=== PATIENT | female | born 1950 | race Caucasian/White ===

== ENCOUNTER 2020-12-25 10:53 | Inpatient (IN) | payer MEDICARE, OTHER ==
[~2020-12-25] VITALS: Ht 157.5 cm; Wt 50.0 kg
--- NOTE | 2020-12-25 11:47 | NUR ---
FAMILY SUPPORT COORDINATOR AT BEDSIDE.
[2020-12-25] MEDS ORDERED: LIDOcaine 2% 10ml TOPICAL JELLY (Urojet) TP ONE (11:50)
--- NOTE | 2020-12-25 12:30 | NUR ---
NOTIFIED DR PEREZ THAT PT SEEMS LITTLE CONFUSED ,PT HAS DRIED STOOL AND DOESN'T REMEMBER WHEN SHE HAD BM,PT STATED THAT SHE DOES FEEL LITTLE ODD ABOUT HER BEHAVIOUR ,HAS NOT SEEN DR IN YEARS .ASKED IF SHE HAS DEMENTIA ,PT STATED THAT SHE DOESN'T KNOW.
[2020-12-25 12:33] LABS: BASOPHILS % (AUTO) 0.1 % (0-1); EOSINOPHILS % (AUTO) 0 % (0-6); HEMATOCRIT 38.4 % (35.0-45.0); LYMPHOCYTES # (AUTO) 0.7 X10'3 (1.1-4.8); LYMPHOCYTES % (AUTO) 6.2 % (21-51); MEAN CORPUSCULAR HEMOGLOBIN 32.5 PG (27.0-31.0); MEAN CORPUSCULAR HGB CONC 33.9 g/dL (33.0-36.5); MEAN CORPUSCULAR VOLUME 95.9 FL (78-98); MEAN PLATELET VOLUME 8.1 FL (7.4-10.4); MONOCYTES # (AUTO) 0.6 X10'3 (0-0.9); MONOCYTES % (AUTO) 5.1 % (2-12); NEUTROPHILS # (AUTO) 10.1 X10'3 (1.8-7.7); NEUTROPHILS % (AUTO) 88.6 % (42-75); PLATELET COUNT 206 X10'3 (140-440); RED CELL DISTRIBUTION WIDTH 13.1 % (11.5-14.5); WHITE BLOOD COUNT 11.4 X10'3 (4.5-11.0)
[2020-12-25 12:41] LABS: PARTIAL THROMBOPLASTIN TIME 26 SECONDS (22-32)
[2020-12-25 12:43] LABS: ALANINE AMINOTRANSFERASE 63 U/L (12-78); ALBUMIN 4.1 G/DL (3.4-5.0); ALBUMIN/GLOBULIN RATIO 1.1 (1.1-1.5); ALKALINE PHOSPHATASE 52 IU/L (46-116); ANION GAP 14 (8-16); ASPARTATE AMINO TRANSFERASE 123 U/L (10-37); BILIRUBIN,TOTAL 0.8 MG/DL (0.1-1.0); BLOOD UREA NITROGEN 46 MG/DL (7-18); CALCIUM 9.3 MG/DL (8.5-10.1); CHLORIDE 99 MMOL/L (99-107); CREATININE 1.15 MG/DL (0.40-0.90); GLUCOSE 94 MG/DL (70-104); POTASSIUM 3.3 MMOL/L (3.5-5.1); SODIUM 139 MMOL/L (135-145); TOTAL CARBON DIOXIDE 26.2 MMOL/L (24-32); eGFR 47 ML/MIN
[2020-12-25] MEDS ORDERED: bisacodyl 10mg suppository rectal RC PRN (13:05)
[2020-12-25] MEDS ORDERED: acetaminophen 325mg tablet PO PRN ×2 (13:05)
[2020-12-25] MEDS ORDERED: mag hydrox/Alum hydrox/simeth 30ml oral suspension PO PRN (13:05)
[2020-12-25] MEDS ORDERED: morphine 2 MG/ML inj. syringe IV PRN ×2 (13:05)
[2020-12-25] MEDS ORDERED: ondansetron/PF 4mg/2ml inj IV PRN (13:05)
[2020-12-25] MEDS ORDERED: magnesium hydroxide 30ml (MOM) UD suspension PO PRN (13:05)
[2020-12-25] MEDS ORDERED: HYDROcodone/acetaminophen 10/325mg tab PO PRN (13:05)
[2020-12-25] MEDS ORDERED: NO HOME MEDS PO (13:11)
--- NOTE | 2020-12-25 13:57 | NUR ---
TO CT SCAN.
[2020-12-25] MEDS: dextrose 5%-1/2 normal saline 1,000 ML IV SCH ×2 (14:17→22:56)
[2020-12-25 19:31] LABS: UA COLLECTION TYPE NON-SPECIFIED
[2020-12-25 19:32] LABS: CLARITY,URINE SLIGHTLY CLOUDY (Clear); COLOR,URINE STRAW (Yellow); GLUCOSE, URINE NEGATIVE (Neg); KETONES,URINE 15 mg/dl (Neg); LEUKOCYTE ESTERASE ,URINE NEGATIVE (Neg); NITRITES, URINE NEGATIVE (Neg); OCCULT BLOOD,URINE LARGE (Neg); PROTEIN,URINE 100 mg/dl (Neg); UROBILINOGEN,URINE 0.2 E.U/dL (0.2-1.0)
[2020-12-25 19:58] LABS: HYALINE CASTS >30 /LPF (NEGATIVE)
[2020-12-25 19:59] LABS: CELLULAR CAST 0-4 /LPF (NEGATIVE)
[2020-12-25 20:00] LABS: MUCUS STRANDS MODERATE /LPF (Neg); SQUAMOUS EPITHELIAL CELL,UR FEW /LPF (FEW)
[2020-12-25 20:01] LABS: BACTERIA,URINE NONE SEEN /HPF (Neg); FINE GRANULAR CAST 0-3 /LPF (NEGATIVE); WBC,URINE 0-4 /HPF (0-4)
[2020-12-25 20:02] LABS: RBC,URINE 0-2 /HPF (0-2)
[2020-12-25] MEDS: docusate sod 100mg capsule PO SCH (20:22)
--- NOTE | 2020-12-25 22:20 | NUR ---
Received report from GRAPHIC DESIGN MANAGERVANE Muhammad. Patient to follow shortly.
--- NOTE | 2020-12-25 22:30 | NUR ---
Patient arrived to floor from ER on a gurney and slide board used to transfer patient over to bed. Pt. A&O, and some grimacing noted whilst being transferred and rolled to pull out extra bedding from underneath. Will offer pain medication.
[2020-12-25] MEDS: HYDROcodone/acetaminophen 5mg/325mg tablet PO PRN (22:56)
[2020-12-25 23:00] VITALS: BP 139/58
[2020-12-26] VITALS (19 sets, daily range): BP systolic 108–192; BP diastolic 49–112
[2020-12-26] MEDS: HYDROcodone/acetaminophen 5mg/325mg tablet PO PRN (05:28)
[2020-12-26] MEDS: dextrose 5%-1/2 normal saline 1,000 ML IV SCH ×2 (05:29→19:13)
[2020-12-26 06:21] LABS: PRE OP PROTIME 10.7 SECONDS (9.0-12.0)
[2020-12-26 06:27] LABS: BASOPHILS % (AUTO) 0.2 % (0-1); EOSINOPHILS # (AUTO) 0.1 X10'3 (0-0.9); HEMATOCRIT 33.7 % (35.0-45.0); HEMOGLOBIN 11.7 g/dl (12.0-16.0); LYMPHOCYTES # (AUTO) 0.9 X10'3 (1.1-4.8); LYMPHOCYTES % (AUTO) 12.4 % (21-51); MEAN CORPUSCULAR HEMOGLOBIN 33.4 PG (27.0-31.0); MEAN CORPUSCULAR HGB CONC 34.7 g/dL (33.0-36.5); MEAN CORPUSCULAR VOLUME 96.4 FL (78-98); MEAN PLATELET VOLUME 8.3 FL (7.4-10.4); MONOCYTES # (AUTO) 0.6 X10'3 (0-0.9); MONOCYTES % (AUTO) 7.4 % (2-12); PLATELET COUNT 188 X10'3 (140-440); RED BLOOD COUNT 3.49 X10'6 (4.20-5.60); WHITE BLOOD COUNT 7.6 X10'3 (4.5-11.0)
[2020-12-26 06:33] LABS: ALBUMIN 3.5 G/DL (3.4-5.0); ANION GAP 7 (8-16); BLOOD UREA NITROGEN 34 MG/DL (7-18); BUN/CREATININE RATIO 36.2 (6.6-38.0); CALCIUM 8.9 MG/DL (8.5-10.1); CHLORIDE 102 MMOL/L (99-107); CREATININE 0.94 MG/DL (0.40-0.90); GLUCOSE 114 MG/DL (70-104); SODIUM 136 MMOL/L (135-145); TOTAL CARBON DIOXIDE 26.6 MMOL/L (24-32); eGFR 59 ML/MIN
--- NOTE | 2020-12-26 06:57 | NUR ---
Problems reprioritized. Patient report given, questions answered & plan of care reviewed with Diane CIFUENTES.
--- NOTE | 2020-12-26 07:31 | NUR ---
Page Sent PAGER ID: [phone] MESSAGE: [id number] Shakeel, can I order K protocol on pt stat. pt is going to ER at 11:30 has a K of 3.0. patrice [id number]
--- NOTE | 2020-12-26 07:33 | NUR ---
Patient in room [facility]. I have received report from Nicol soliz and had the opportunity to ask questions and assume patient care.
[2020-12-26] MEDS ORDERED: ringers solution, lacted 1,000 ML IV SCH ×2 (07:35→11:30)
[2020-12-26] MEDS ORDERED: morphine 2 MG/ML inj. syringe IV PRN ×2 (07:35→11:30)
[2020-12-26] MEDS ORDERED: proCHLORperazine 10 MG/2 ml inj IV PRN ×2 (07:35→11:30)
[2020-12-26] MEDS ORDERED: morphine 4 MG/ML inj SYRINge IV PRN ×2 (07:35→11:30)
[2020-12-26] MEDS ORDERED: meperidine/PF 25mg/ml syringe IV PRN ×5 (07:35→11:30)
[2020-12-26] MEDS ORDERED: ondansetron/PF 4mg/2ml inj IV PRN ×2 (07:35→11:30)
[2020-12-26] MEDS: docusate sod 100mg capsule PO SCH ×2 (08:00→21:28)
[2020-12-26] MEDS ORDERED: potassium Cl 20 mEq SR tablet PO PRN ×2 (08:10)
[2020-12-26] MEDS ORDERED: magnesium Cl slow-release 64mg tablet PO PRN (08:10)
[2020-12-26] MEDS ORDERED: magnesium 4gm in 100ml NS 100 ML IV PRN (08:10)
--- NOTE | 2020-12-26 09:09 | NUR ---
per pharmacist potassium is compatible IVPB with D% 1/2 NS
[2020-12-26] MEDS: potassium Cl 40MEQ/1/2NS 520ml 520 ML IV PRN ×2 (09:12→15:07)
--- NOTE | 2020-12-26 10:30 | NUR ---
Problems reprioritized. Patient report given, questions answered & plan of care reviewed with Lu lacy rn.
--- NOTE | 2020-12-26 11:00 | NUR ---
no vitals to be taken, pt is at surgery.
[2020-12-26] MEDS ORDERED: rocuronium 10mg/ml inj IV ONE ×2 (11:26→11:40)
[2020-12-26] MEDS ORDERED: [UNRECOGNIZED DRUG - OTHER] IV ONE (11:26)
[2020-12-26] MEDS ORDERED: POTASSIUM CL IV ONE (11:26)
[2020-12-26] MEDS ORDERED: sevoflurane 250ml liquid IH ONE (11:26)
[2020-12-26] MEDS ORDERED: ketorolac trometh. 30mg/ml inj. IV ONE (11:30)
[2020-12-26] MEDS ORDERED: labetalol 20mg/4ml (5mg/ml) syringe IV PRN (11:30)
[2020-12-26] MEDS ORDERED: hydrALAZINE 20mg/ml inj. IV PRN (11:30)
[2020-12-26] MEDS ORDERED: acetaminophen 1,000mg/100ml IV 100 ML IV PRN (11:30)
[2020-12-26] MEDS ORDERED: midazolam 1 mg/ML 2ml injection ONE (11:32)
[2020-12-26] MEDS ORDERED: fentaNYL /PF 50mcg/ml 5ml ampule ONE (11:33)
[2020-12-26] MEDS ORDERED: LIDOcaine 2% (20mg/ml) 5ml vial ONE ×2 (11:40→11:51)
[2020-12-26] MEDS ORDERED: propofol inj 20 ML IV ONE ×2 (11:40→11:51)
[2020-12-26] MEDS ORDERED: famotidine/PF 10 mg/ml inj IV ONE (11:49)
[2020-12-26] MEDS ORDERED: 0.9 % SODIUM CHLORIDE 10 ML VIAL ONE ×2 (11:51)
[2020-12-26] MEDS ORDERED: ceFAZolin 1000mg inj ONE ×2 (12:04)
[2020-12-26] MEDS ORDERED: ondansetron/PF 4mg/2ml inj ONE (12:04)
[2020-12-26] MEDS ORDERED: dexamethasone sod phosphate 4mg/ml inj. ONE (12:04)
[2020-12-26] MEDS ORDERED: glycopyrrolate 0.2mg/ml inj ONE (12:53)
[2020-12-26] MEDS ORDERED: morphine 10mg/ml inj. ONE (12:53)
[2020-12-26] MEDS ORDERED: neostigmine methylsulfate 1 MG/ML 10ml vial ONE (12:53)
--- NOTE | 2020-12-26 13:18 | NUR ---
Received from OR via BED , accompanied by Anesthesiologist BOAZ and report given by Anesthesiolgist. PT. ARRIVED. VSS WITH ELEVATED BP. LR INFUSING AT 100 ML/HR INTO R. AC 20 G. SITE. CDI. 22G SALINE LOCKED IN L. AC. CDI. ABDUCTOR WEDGE IN PLACE. FC DRAINING TO GRAVITY. YELLOW URINE NOTED (185 ML ON ARRIVAL). MARK DRESSING ON R. HIP IN PLACE WITH SAND BAG COOLING SYSTEM. SCD'S ON. PT. DENIES PAIN. PULSES NOTED ON ALL EXTREMEITIES. SENSATION AND MOVEMENT NOTED IN UPPER EXTREMITIES. O2 VIA FACE MASK AT 10 L. Addendum: 12/26/20 at 1342 by Colleen Aguilar RN Amended: Links added.
[2020-12-26] MEDS: meperidine/PF 25mg/ml syringe IV PRN ×2 (13:52→18:43)
--- NOTE | 2020-12-26 14:20 | NUR ---
PT MORE AWAKE VSS NO DISTRESS SPINAL LEVEL AT L2 DENIES PAIN. MARK DRAIN INTACT Addendum: 12/26/20 at 1421 by Lu Braden RN Amended: Links added.
--- NOTE | 2020-12-26 14:39 | NUR ---
PT ARROUSBLE TO NAME VSS NO DISTRESS, DENIES PAIN VSS, SAT 97% ON NC 2L BETSY FEW ICE CHIPS MEETS CRITERIA TO DC TO ROOM CALL TO GIVE REPORT RN WILL CALL BACK. Addendum: 12/26/20 at 1440 by Lu Braden RN Amended: Links added.
--- NOTE | 2020-12-26 14:53 | NUR ---
Patient in room [facility]. I have received report from tao lacy rn and had the opportunity to ask questions and assume patient care.
--- NOTE | 2020-12-26 18:55 | NUR ---
Problems reprioritized. Patient report given, questions answered & plan of care reviewed with Jannette Bhatia.
--- NOTE | 2020-12-26 18:56 | NUR ---
Patient in room [facility]. I have received report from TAMMI CIFUENTES and had the opportunity to ask questions and assume patient care.
[2020-12-26] MEDS: ceFAZolin/D5W- 1GM premix 50 ML IV SCH (19:05)
[2020-12-26] MEDS: K and/or MAG REPLACEMENT MC SCH (20:00)
--- NOTE | 2020-12-26 20:00 | NUR ---
AGREED WITH STUDENT PHYSICAL ASSESSMENT.
[2020-12-27] VITALS: BP 122/56
[2020-12-27] MEDS: ceFAZolin/D5W- 1GM premix 50 ML IV SCH ×2 (01:07→08:18)
[2020-12-27 06:28] LABS: BASOPHILS % (AUTO) 0.1 % (0-1); EOSINOPHILS % (AUTO) 0.1 % (0-6); HEMATOCRIT 32.1 % (35.0-45.0); HEMOGLOBIN 10.9 g/dl (12.0-16.0); LYMPHOCYTES # (AUTO) 0.6 X10'3 (1.1-4.8); LYMPHOCYTES % (AUTO) 6.3 % (21-51); MEAN CORPUSCULAR HEMOGLOBIN 33.3 PG (27.0-31.0); MEAN CORPUSCULAR HGB CONC 34.1 g/dL (33.0-36.5); MEAN CORPUSCULAR VOLUME 97.7 FL (78-98); MEAN PLATELET VOLUME 8.1 FL (7.4-10.4); MONOCYTES # (AUTO) 0.9 X10'3 (0-0.9); MONOCYTES % (AUTO) 9.1 % (2-12); NEUTROPHILS # (AUTO) 8.1 X10'3 (1.8-7.7); NEUTROPHILS % (AUTO) 84.4 % (42-75); PLATELET COUNT 215 X10'3 (140-440); RED BLOOD COUNT 3.29 X10'6 (4.20-5.60); RED CELL DISTRIBUTION WIDTH 13.2 % (11.5-14.5); WHITE BLOOD COUNT 9.6 X10'3 (4.5-11.0)
--- NOTE | 2020-12-27 06:45 | NUR ---
Problems reprioritized. Patient report given, questions answered & plan of care reviewed with MARYLIN CIFUENTES.
--- NOTE | 2020-12-27 06:45 | NUR ---
Patient in room [facility]. I have received report from VANE Au and had the opportunity to ask questions and assume patient care.
[2020-12-27 06:53] LABS: ALBUMIN 3.3 G/DL (3.4-5.0); ANION GAP 10 (8-16); BLOOD UREA NITROGEN 18 MG/DL (7-18); CALCIUM 8.3 MG/DL (8.5-10.1); CHLORIDE 100 MMOL/L (99-107); GLUCOSE 98 MG/DL (70-104); POTASSIUM 3.8 MMOL/L (3.5-5.1); SODIUM 135 MMOL/L (135-145); TOTAL CARBON DIOXIDE 24.8 MMOL/L (24-32); eGFR 55 ML/MIN
--- NOTE | 2020-12-27 07:03 | NUR ---
Pt found to have removed MARK dressing from right hip. Pt to be moved closer to nurses station and will replace MARK dressing. Will continue to monitor.
[2020-12-27 07:04] VITALS: BP 135/54
[2020-12-27] MEDS: K and/or MAG REPLACEMENT MC SCH ×2 (08:00→19:41)
[2020-12-27] MEDS: dextrose 5%-1/2 normal saline 1,000 ML IV SCH (08:19)
[2020-12-27] MEDS: docusate sod 100mg capsule PO SCH ×2 (08:19→20:00)
--- NOTE | 2020-12-27 08:23 | NUR ---
Pt transferred to room 358A with all belongings
[2020-12-27] MEDS ORDERED: LORazepam 0.5 MG tablet PO PRN (09:00)
--- NOTE | 2020-12-27 09:36 | NUR ---
MARK dressing reapplied to right hip
--- NOTE | 2020-12-27 10:35 | NUR ---
FC DC'd by student RN with instructor assisting. Pt tolerated well. Will continue to monitor.
--- NOTE | 2020-12-27 10:45 | NUR ---
Pt states she is 'becoming suspicious' D/T hospital staff requesting she use her call light prior to getting out of bed. This RN educated pt that she is at [facility] D/T having her hip surgically repaired and for her safety we do not want her getting up without assistance. Pt is resistant to education and sets call light aside after nursing set it within reach. Bed alarm set and will continue to monitor.
[2020-12-27 11:00] VITALS: BP 145/63
--- NOTE | 2020-12-27 11:52 | NUR ---
Pt pulled IV out while getting out of bed. Pt reoriented to place, as well as why she is in the hospital. Pt continues to deny explanations and is resistant to care. After multiple attempts, pt agreed to get back in bed, bed alarm set. Will continue to monitor.
--- NOTE | 2020-12-27 13:57 | NUR ---
Pt argumentative and resistive to care. States she is being 'restrained' and wants 'to go home and crawl into bed'. This RN educated pt that she is not being restrained and the doctor has not deemed her safe to be discharged from the hospital at this time. Pt states that she is 'firing' this RN. Hospitalist notified, will continue to monitor.
--- NOTE | 2020-12-27 18:30 | NUR ---
PATIENT CONFUSED DIFFICULT TO REDIRECTED. POOR SAFETY AWARENESS, WALKED IN THE HALLWAY WITHOUT JANITORIAL CLEANER. SECURITY CALLED AND ASSISTED PATIENT TO CALM AND ONE AND ONE SITTER AT BEDSIDE. SAFETY AND COMFORT MEASURES MAINTAINED
--- NOTE | 2020-12-27 19:00 | NUR ---
Problems reprioritized. Patient report given, questions answered & plan of care reviewed with VANE Reyes.
[2020-12-27 20:00] VITALS: BP 124/66
[2020-12-27] MEDS: HYDROcodone/acetaminophen 5mg/325mg tablet PO PRN (20:16)
[2020-12-27 22:40] VITALS: BP 122/80
[2020-12-28 01:00] VITALS: BP 122/64
[2020-12-28 06:16] LABS: ANION GAP 8 (8-16); BLOOD UREA NITROGEN 20 MG/DL (7-18); CALCIUM 8.8 MG/DL (8.5-10.1); CHLORIDE 107 MMOL/L (99-107); CREATININE 0.91 MG/DL (0.40-0.90); GLUCOSE 93 MG/DL (70-104); POTASSIUM 4.1 MMOL/L (3.5-5.1); SODIUM 141 MMOL/L (135-145); TOTAL CARBON DIOXIDE 25.8 MMOL/L (24-32); eGFR 61 ML/MIN
[2020-12-28 06:39] VITALS: BP 147/67
--- NOTE | 2020-12-28 06:45 | NUR ---
Patient in room [facility]. I have received report from rangel soliz and had the opportunity to ask questions and assume patient care.
[2020-12-28] MEDS: K and/or MAG REPLACEMENT MC SCH (08:00)
[2020-12-28] MEDS: docusate sod 100mg capsule PO SCH (08:00)
[2020-12-28 09:18] LABS: BASOPHILS % (AUTO) 0.3 % (0-1); EOSINOPHILS # (AUTO) 0.1 X10'3 (0-0.9); EOSINOPHILS % (AUTO) 1.7 % (0-6); MEAN CORPUSCULAR HGB CONC 34.4 g/dL (33.0-36.5); MEAN PLATELET VOLUME 8.1 FL (7.4-10.4); MONOCYTES # (AUTO) 0.6 X10'3 (0-0.9); MONOCYTES % (AUTO) 9.1 % (2-12); NEUTROPHILS # (AUTO) 5.3 X10'3 (1.8-7.7); NEUTROPHILS % (AUTO) 74.9 % (42-75); PLATELET COUNT 205 X10'3 (140-440); RED BLOOD COUNT 3.02 X10'6 (4.20-5.60); RED CELL DISTRIBUTION WIDTH 13.1 % (11.5-14.5)
[2020-12-28] MEDS ORDERED: ASPI-1264 PO (10:56)
[2020-12-28 11:44] VITALS: BP 119/54
[2020-12-28 11:45] VITALS: BP 125/69
== END 2020-12-28 12:56 | disposition home or self-care (01) | DRG 521 ==
LOC: ER 10:55 → UNDOADMIN 13:03 → ED HOLD 13:03 → SUR 3N 22:30
PROVIDERS: ADMIT Internal Medicine; ATTEND Internal Medicine
PROC: 0SRR0JA Replacement of Right Hip Joint, Femoral Surface with Synthetic Substitute, Uncemented, Open Approach (ICD-10-PCS; principal; 2020-12-26 11:26)
DX: S72.001A Fracture of unspecified part of neck of right femur, initial encounter for closed fracture (principal); G92 Toxic encephalopathy; D62 Acute posthemorrhagic anemia; Z20.822 Contact with and (suspected) exposure to COVID-19; E87.6 Hypokalemia; W18.39XA Other fall on same level, initial encounter; F10.20 Alcohol dependence, uncomplicated; Z59.0 Homelessness; T41.45XA Adverse effect of unspecified anesthetic, initial encounter; Y92.234 Operating room of hospital as the place of occurrence of the external cause; Z87.891 Personal history of nicotine dependence; Z79.82 Long term (current) use of aspirin; Y93.89 Activity, other specified; Y92.89 Other specified places as the place of occurrence of the external cause; Y99.8 Other external cause status
CPT/HCPCS: 36415; 70450; 71045; 73502; 80048; 80053; 81001; 82948; 84132; 85025; 85610; 85730; 86885; 86900; 86901; 87081; 87635; 93005; 97110; 97116; 97161; 97530; 99285; A4618; A6454; A7000; A9272; C1776; C9803; G0378; J0690; J1100; J2001; J2175; J2250; J2270; J2405; J2704; J2710; J3010; J3480; J3490; J7120